=== PATIENT | male | born 1970 | race Caucasian/White ===

== ENCOUNTER 2019-10-21 09:09 | Outpatient (CLI) | payer BC, SELFPAY ==
--- NOTE | 2019-10-21 09:25 | EST_ITS ---
Patient Info Name: Leo Fairbanks Age: 49 years : 1970 Gender: Male Ht: 63 in Wt: 190 lbs BSA: 1.99 m2 HR: 81 bpm BP: 135 / 92 mmHg Exam Date: 10/21/2019 11:14 AM Exam Location: [facility] Stress Patient Status: Outpatient Admit Date: 10/21/2019 Staff Ordering Physician: Gail Giron MD Attending Provider: Gail Giron MD Exercise Technologist: Jameel Arthur, MARTHA, RT Exercise Physician: Ceferino Damon DO Exam Type: CA stress test treadmill Study Info Indications R53.83 - Other fatigue An exercise stress test was performed. Summary 1. 1. Negative Stan exercise stress test for ischemic ST changes by ECG criteria. 2. 2. Good functional capacity, achieving 10 METs of workload. 3. 3. Appropriate HR response to exercise. 4. 4. Appropriate HR recovery at 1 minute post exercise. 5. 5. No imaging with stress testing. 6. 6. Patient informed of the above results. Protocol: Stan Stress ECG Details Stage: REST Duration (min): 7 min : 40 sec Speed (mph): 0.0 Grade (%): 0 HR (bpm): 69 SBP (mmHg): 130 DBP (mmHg): 82 METS: --- Stage: REST Duration (min): 9 min : 12 sec Speed (mph): 0.0 Grade (%): 0 HR (bpm): 69 SBP (mmHg): 130 DBP (mmHg): 82 METS: --- Stage: STAGE 1 Duration (min): 1 min : 0 sec Speed (mph): 1.7 Grade (%): 10 HR (bpm): 102 SBP (mmHg): 130 DBP (mmHg): 82 METS: --- Stage: STAGE 1 Duration (min): 2 min : 0 sec Speed (mph): 1.7 Grade (%): 10 HR (bpm): 107 SBP (mmHg): 130 DBP (mmHg): 82 METS: --- Stage: STAGE 1 Duration (min): 3 min : 0 sec Speed (mph): 1.7 Grade (%): 10 HR (bpm): 111 SBP (mmHg): 175 DBP (mmHg): 93 METS: --- Stage: STAGE 2 Duration (min): 1 min : 0 sec Speed (mph): 2.5 Grade (%): 12 HR (bpm): 119 SBP (mmHg): 175 DBP (mmHg): 93 METS: --- Stage: STAGE 2 Duration (min): 2 min : 0 sec Speed (mph): 2.5 Grade (%): 12 HR (bpm): 126 SBP (mmHg): 201 DBP (mmHg): 94 METS: --- Stage: STAGE 2 Duration (min): 3 min : 0 sec Speed (mph): 2.5 Grade (%): 12 HR (bpm): 125 SBP (mmHg): 201 DBP (mmHg): 94 METS: --- Stage: STAGE 3 Duration (min): 1 min : 0 sec Speed (mph): 3.4 Grade (%): 14 HR (bpm): 158 SBP (mmHg): 207 DBP (mmHg): 95 METS: --- Stage: STAGE 3 Duration (min): 1 min : 55 sec Speed (mph): 3.4 Grade (%): 14 HR (bpm): 161 SBP (mmHg): 207 DBP (mmHg): 95 METS: --- Stage: RECOVERY Duration (min): 0 min : 4 sec Speed (mph): 1.5 Grade (%): 0 HR (bpm): 161 SBP (mmHg): 207 DBP (mmHg): 95 METS: --- Stage: RECOVERY Duration (min): 1 min : 4 sec Speed (mph): 0.0 Grade (%): 0 HR (bpm): 111 SBP (mmHg): 207 DBP (mmHg): 95 METS: --- Stage: RECOVERY
== END 2019-10-21 09:10 | disposition home or self-care (01) ==
PROVIDERS: PCP Family Medicine; Visit Provider Family Medicine
DX: Z00.00 Encounter for general adult medical examination without abnormal findings (principal); R68.89 Other general symptoms and signs; E78.2 Mixed hyperlipidemia; Z82.49 Family history of ischemic heart disease and other diseases of the circulatory system; E07.9 Disorder of thyroid, unspecified; R53.83 Other fatigue; G47.33 Obstructive sleep apnea (adult) (pediatric)
CPT/HCPCS: 93017

== ENCOUNTER 2020-04-14 14:54 | Outpatient (CLI) | payer BC, SELFPAY ==
--- NOTE | ~2020-04-14 | US_ITS ---
EXAMINATION: US thyroid DATE: 04/14/2020 15:27 INDICATION: Localized swelling, mass and lump at the neck TECHNIQUE: Multiple ultrasound images of the thyroid were obtained. COMPARISON: None. FINDINGS: The right thyroid lobe measures 3.5 x 1.6 x 1.0 cm. The left thyroid lobe measures 3.5 x 1.5 x 1.3 c m. Thyroid isthmus measures 5 mm in thickness. No discrete nodules identified. There is normal echote xture, echogenicity and vascular flow throughout the thyroid gland. IMPRESSION: 1. Normal thyroid ultrasound. Reviewed, dictated and finalized at location A.
== END 2020-04-14 14:55 | disposition home or self-care (01) ==
LOC: ANHIMG 14:56
PROVIDERS: PCP Family Medicine; Visit Provider Otolaryngology
DX: R22.1 Localized swelling, mass and lump, neck (principal)
CPT/HCPCS: 76536

== ENCOUNTER 2020-12-07 15:31 | Outpatient (CLI) | payer BC, SELFPAY | END 2020-12-07 15:32 | disposition home or self-care (01) | LOC: ANHCOVIDVC 15:31 | PROVIDERS: PCP Family Medicine | DX: Z23 Encounter for immunization (principal) | CPT/HCPCS: 0001A; 91300 ==

== ENCOUNTER 2020-12-28 15:28 | Outpatient (CLI) | payer BC, SELFPAY | END 2020-12-28 15:29 | disposition home or self-care (01) | LOC: ANHCOVIDVC 15:28 | PROVIDERS: PCP Family Medicine | DX: Z23 Encounter for immunization (principal) | CPT/HCPCS: 0002A; 91300 ==

== ENCOUNTER 2022-04-24 16:01 | Outpatient (CLI) | payer BC, SELFPAY ==
[2022-04-24 19:10] LABS: Uric Acid 4.7 mg/dL (3.5-8.5)
== END 2022-04-24 16:02 | disposition home or self-care (01) ==
LOC: ANHGOSHLAB 16:03
PROVIDERS: PCP Family Medicine; Visit Provider Family Medicine
DX: M79.676 Pain in unspecified toe(s) (principal)
CPT/HCPCS: 36415; 84550

== ENCOUNTER 2022-10-26 09:25 | Emergency (ER) | payer BC, SELFPAY ==
--- NOTE | 2022-10-26 09:27 | ED.BACK ---
HPI - Back Pain/Injury General Chief Complaint: Back Pain/Injury Stated Complaint: lower back pain Time Seen by Provider: 10/26/22 09:27 Source: patient, RN notes reviewed and old records reviewed Mode of arrival: ambulatory Limitations: no limitations History of Present Illness HPI Narrative: 52-year-old male presents to the [facility] with complaints of right lower back pain for the last week. Patient states when he woke up this morning felt a sharp pain in his right lower back. 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 Denies any saddle anesthesia. Patient reports occasionally when the pain gets bad the pain shoots down the lateral aspect of his right leg. MD elicited complaint: back pain (Right lower) Related Data Home Medications Medication Instructions Recorded Confirmed multivitamin 1 cap PO DAILY 09/02/19 10/26/22 Allergies Allergy/AdvReac Type Severity Reaction Status Date / Time pollen extracts Allergy Intermediate sneezing Verified 10/26/22 09:31 ragweed pollen Allergy Intermediate sneezing Verified 10/26/22 09:31 wheezing atorvastatin Allergy Unknown body aches Verified 10/26/22 09:31 simvastatin Allergy Unknown muscle Verified 10/26/22 09:31 aches Review of Systems Review of Systems: All systems reviewed & are unremarkable except as noted in HPI and below Constitutional: Constitutional: Reports no additional constitutional complaints Eyes: Eyes: Reports no additional eye complaints ENT: Reports system reviewed and no additional complaints, except as documented Cardiovascular: Cardiovascular: Reports no additional cardiovascular complaints, Denies chest pain and Denies dyspnea Respiratory: Respiratory: Reports no additional respiratory complaints, Denies chest congestion, Denies cough and Denies dyspnea Gastrointestinal: Gastrointestinal: Reports no additional gastrointestinal complaints, Denies abdominal pain, Denies nausea and Denies vomiting Musculoskeletal: Musculoskeletal: Reports as per HPI and Reports back pain Integumentary/Breasts: Skin/Breast: Reports system reviewed and no additional complaints, except as docu Neurologic: Reports system reviewed and no additional complaints, except as documented Psychiatric: Psychiatric: Reports no additional psychiatric complaints Allergic/Immunologic: Allergic/Immunologic: Reports no additional allergic/immunologic complaints [facility] Past Medical History Medical History Exercise intolerance Family history of coronary artery disease 2. stress treadmill negative for ischemia Left thyroid nodule Thyroid mass Treadmill stress test negative for angina pectoris 2.. negative for ischemia Family History Family History Father Family history of cardiovascular disease Mother Family history of malignant neoplasm of breast in first degree relative Other Family history of malignant neoplasm of breast Hypertension Social History Social History Smoking status: Never smoker Alcohol intake: current Substance use: never Substance use type: does not use Living arrangements: alone Occupation/Education: occupation Additional occupation/education comments: [employer] Spiritual care concerns: No Agree to blood products: Yes Comments At the time of my signature, I reviewed and agree with the nursing past medical, surgical, social, and family history. There is no relevant family history pertinent to the patient complaint. Exam Const: General: cooperative, healthy appearing, comfortable, no acute distress, well developed, alert and well nourished Nutritional Appearance: well nourished Orientation/consciousness: patient oriented x3 Limitations: no limitations HENMT: Head: normal to inspection Ears: hearing
[2022-10-26 09:32] VITALS: BP 177/88; PULSE 66; RESP 16; TEMP 37.2; O2SAT 100
== END 2022-10-26 09:51 | disposition home or self-care (01) ==
PROVIDERS: Emergency Provider Nurse Practitioner; PCP Family Medicine
DX: M54.41 Lumbago with sciatica, right side (principal)
CPT/HCPCS: 99213; G0463

== ENCOUNTER 2025-03-29 16:31 | Emergency (ER) | payer BC, SELFPAY ==
[2025-03-29 16:39] VITALS: BP 146/70; PULSE 62; RESP 20; TEMP 36.8; O2SAT 100
--- NOTE | 2025-03-29 16:40 | ED.SKABFB ---
HPI - Skin/Abscess/Foreign Bdy General Chief complaint: Skin/Abscess/Foreign Body Stated complaint: Bug Bite Time Seen by Provider: 03/29/25 16:44 Source: patient, RN notes reviewed and old records reviewed Mode of arrival: ambulatory Limitations: no limitations History of Present Illness HPI narrative: 54-year-old male presents to the [facility] after being stung yesterday to the anterior right lower leg, ch. Area is pink, mildly swollen. No treatment prior to arrival Related Data Home Medications ?Medication ?Instructions ?Recorded ?Confirmed ?Last Taken ?Type multivitamin 1 cap PO DAILY 09/02/19 04/30/24 Unknown History Allergies Allergy/AdvReac Type Severity Reaction Status Date / Time pollen extracts Allergy Intermediate sneezing Verified 04/30/24 14:02 ragweed pollen Allergy Intermediate sneezing Verified 04/30/24 14:02 wheezing atorvastatin Allergy Unknown body aches Verified 04/30/24 14:02 simvastatin Allergy Unknown muscle Verified 04/30/24 14:02 aches fenofibrate AdvReac Severe Back Pain Verified 04/30/24 14:02 Review of Systems Review of Systems: All systems reviewed & are unremarkable except as noted in HPI and below Constitutional: Constitutional: Reports no additional constitutional complaints ENT: Reports system reviewed and no additional complaints, except as documented Cardiovascular: Cardiovascular: Reports no additional cardiovascular complaints, Denies chest pain and Denies dyspnea Respiratory: Respiratory: Reports no additional respiratory complaints, Denies chest congestion, Denies cough and Denies dyspnea Musculoskeletal: Musculoskeletal: Reports no additional musculoskeletal complaints Integumentary/Breasts: Skin/Breast: Reports as per HPI [facility] Past Medical History Medical History Treadmill stress test negative for angina pectoris . negative for ischemia Family history of coronary artery disease 10.21.19 stress treadmill negative for ischemia Exercise intolerance Family History Family History Father Family history of cardiovascular disease Mother Family history of malignant neoplasm of breast in first degree relative Other Family history of malignant neoplasm of breast Hypertension Social History Social History Social History: Caffeine-soda/coffee Smoking status: Never smoker Alcohol intake: current Alcohol use details: occasionally Substance use: never Substance use type: does not use Do You Feel Safe in your Home?: Yes Lack of Transportation: No Lack of Food: Never True Current Housing: I Have Housing Concerned About Future Housing: No Difficulty Paying Gas/Electric Bills: No Difficulty Paying for Meds: No Currently Unemployed: No Education: High School Diploma/GED Difficulty w/ Childcare or Family Care: No Living arrangements: alone Occupation/Education: occupation Additional occupation/education comments: [employer] Spiritual care concerns: No Agree to blood products: Yes Comments At the time of my signature, I reviewed and agree with the nursing past medical, surgical, social, and family history. There is no relevant family history pertinent to the patient complaint. Exam Const: General: cooperative, healthy appearing, comfortable, no acute distress, well developed, alert and well nourished Nutritional Appearance: well nourished Orientation/consciousness: patient oriented x3 Limitations: no limitations HENMT: Head: normal to inspection Eyes: General: appearance normal, both eyes and all related structures Alignment and Position: alignment normal Neck: Neck: normal visual inspection, full ROM, no lymphadenopathy and no meningeal signs Chest: Chest palpation & inspection: normal inspection of the chest Resp: Effort & Inspection: normal respiratory effort and able to speak in complete sentences Cardio: Rate: regular rate Skin: General skin exam: normal color and no rashes or lesions noted Full body images:  1. Insect sting, pink, mildly inflamed. No cellulitic changes. Neuro: General: patient oriented x3, gait normal, moves all extremities and no meningeal signs Cognition (Neuro): normal cognition Speech: normal speech Gait exam (Neuro): Normal gait present Extrem: General: normal to inspection, full ROM, capillary refill normal and normal gait Psych: Appearance: grossly normal and well kempt Mental Status: mental status grossly normal Speech and movement: Normal speech and movement present and Clear speech present Affect: normal affect Attitude: cooperative Course Course Level of Care: Express Care Visit Vital Signs Vital signs: Vital Signs Temperature 98.3 F 03/29/25 16:39 Pulse Rate 62 03/29/25 16:39 Respiratory Rate 20 03/29/25 16:39 Blood Pressure 146/70 H 03/29/25 16:39 Pulse Oximetry 100 03/29/25 16:39 Oxygen Delivery Room Air 03/29/25 16:39 Temperature 98.3 F 03/29/25 16:39 Pulse Rate 62 03/29/25 16:39 Respiratory Rate 20 03/29/25 16:39 Blood Pressure 146/70 H 03/29/25 16:39 Pulse Oximetry 100 03/29/25 16:39 Oxygen Delivery Room Air 03/29/25 16:39 Reviewed MDM - Skin/Abscess/Foreign Bdy MDM Narrative Medical decision making narrative: Patient sitting in exam room. Patient is nontoxic, vitals stable. Patient presents after getting stung yesterday with swelling to the right anterior ch. Patient most likely having localized reaction to an insect sting Patient appropriate for outpatient treatment with close follow-up Discharge instructions reviewed with patient, as well as provided in writing per nursing staff. The instructions also include specific and strict return/GO TO THE ER as well as f/u information. All questions have been answered, and the patient deny any further questions with discharge and discharge plan. Some parts of this dictation were generated by voice recognition software and may contain typographical and/or grammatical inaccuracies. Differential Diagnosis Differential diagnosis: Likely abscess of skin or subcutaneous tissue, urticaria, cellulitis, eczema, insect bites and contact dermatitis Critical Care Time Critical Care Time Critical Care Time: No Discharge Plan Discharge Clinical Impression: Accidental insect sting Patient Disposition: Home Condition: Stable Instructions: Insect Bite or Sting (ED), General Allergic Reaction (ED) Additional Instructions: Take Benadryl 25-50 mg every 8 hours for itching Take Zyrtec 10 mg every day for 14 days Take Pepcid 20mg daily for for 14 days Apply hydrocortisone ointment or cream to the area twice daily Avoid hot showers, Take cool showers. Hot showers will make rashes worse Apply cool compresses every 2-3 hours for 15 minutes Follow-up with primary care provider as needed Go to the ER for new or worsening symptoms such as shortness of breath. Patient Language: Kyrgyz Prescriptions: No Action multivitamin Capsule 1 cap PO DAILY ezetimibe 10 mg tablet See Rx Instructions .ROUTE .COMPLEX Qty: 90 1RF Dose Instruction: Take 1 tablet by mouth once daily Rx Instructions: Take 1 tablet by mouth once daily Follow-up/Referrals: Gail Giron MD [Primary Care Provider] - 2 Weeks (express care follow up ) Time of Disposition: 16:49
== END 2025-03-29 16:52 | disposition home or self-care (01) ==
PROVIDERS: Emergency Provider Nurse Practitioner; PCP Family Medicine
DX: T63.481A Toxic effect of venom of other arthropod, accidental (unintentional), initial encounter (principal)
CPT/HCPCS: 99211; G0463